=== PATIENT | female | born 1970 | race American Indian/Alaskan Native ===

== ENCOUNTER 2021-08-28 16:16 | Emergency (ER) | payer MEDICARE ==
[2021-08-28 17:00] VITALS: BP 89/66
[2021-08-28] MEDS ORDERED: SODIUM CHLORIDE 0.9% 1000 ML 1,000 ML IV ONE (18:28)
[2021-08-28] MEDS ORDERED: IPRATROPIUM/ALBUTEROL SULFATE 3 ML AMPUL.NEB IH ONE (18:28)
--- NOTE | 2021-08-28 18:29 | Emergency Department Report ---
ED General Adult HPI - General Chief complaint: Dyspnea/Respdistress Stated complaint: COUGHING UP BLOOD Time Seen by Provider: 08/28/21 18:27 Source: patient Mode of arrival: Ambulatory Limitations: No Limitations - History of Present Illness Initial comments: 51-year-old female with a past medical history of vasculitis, lupus which is currently in remission, pseudotumor cerebri presents to the ER today with complaints of cough, vomiting, diarrhea. Patient states that symptoms started 4 days ago. She complains of a harsh cough, and yesterday she noticed that it was streaks of bright red blood mixed with sputum. She started with vomiting and di arrhea yesterday. She reports 2 episodes of vomiting today and 4 episodes of vomiting yesterday. She reports 2 episodes of diarrhea yesterday and 2 episodes of diarrhea today. She also reports lower back pain, headache for 4 days, dysuria, rhinorrhea, nasal congestion and sore throat. She reports pain in the chest from the coughing. She denies any fever or chills. She reports no shortness of breath or wheezing. She states that her daughter and her son are also sick at home with similar symptoms. She states that she has been taking Mucinex and Robitussin without much relief of her symptoms. She is up-to-date on her Covid vaccine but has not taken the test since she has been sick. She denies tobacco use or alcohol abuse or illicit drug use. She states that she has had similar symptoms of bronchitis, and sometimes when she has had blood in her sputum is usually related to pneumonia and so she came to the ER to get checked. MD Complaint: Cough/hemoptysis/vomiting/diarrhea -: days(s) (4) - Related Data Previous Rx's Medication Instructions Recorded Last Taken Type Albuterol Mdi (or & Nicu Only) 2 puff IH QID PRN #8.5 gram 08/28/21 Unknown Rx [ProAir HFA Inhaler] Ondansetron [Zofran Odt] 4 mg PO Q8HR #15 tab.rapdis 08/28/21 Unknown Rx Promethazine /Codeine 5 - 10 ml PO Q6H PRN #120 ml 08/28/21 Unknown Rx [Phenergan/Codeine 6.25-10 mg/5 ml] predniSONE [Deltasone] 40 mg PO QDAY #10 tab 08/28/21 Unknown Rx Allergies Allergy/AdvReac Type Severity Reaction Status Date / Time metoclopramide [From Reglan] Allergy Rash Verified 08/28/21 16:57 Penicillins Allergy Rash Verified 08/28/21 16:57 Sulfa (Sulfonamide Allergy Rash Verified 08/28/21 16:57 Antibiotics) ativan Allergy Unknown Uncoded 08/28/21 16:59 zofran Allergy Hives Uncoded 08/28/21 16:57 ED Review of Systems ROS: Stated complaint: COUGHING UP BLOOD Other details as noted in HPI Comment: All other systems reviewed and negative Constitutional: denies: chills, fever Eyes: denies: eye pain, eye discharge, vision change ENT: congestion, other (rhinorrhea). denies: ear pain, throat pain Respiratory: cough. denies: shortness of breath, SOB with exertion, SOB at rest, wheezing Cardiovascular: chest pain (with cough) Gastrointestinal: nausea, vomiting. denies: abdominal pain, diarrhea, constipation, hematemesis, melena, hematochezia Genitourinary: denies: urgency, dysuria, frequency, hematuria, discharge, abnormal menses, dyspareunia Skin: denies: rash, lesions, change in color, change in hair/nails, pruritus Neurological: denies: headache, weakness, numbness, paresthesias, confusion, abnormal gait, vertigo Psychiatric: denies: anxiety, depression, auditory hallucinations, visual hallucinations, homicidal thoughts, suicidal thoughts Hematological/Lymphatic: denies: easy bleeding, easy bruising, swollen glands ED Past Medical Hx - Medications Home Medications: Home Medications Medication Instructions Recorded Confirmed Last Taken Type Albuterol Mdi (or & Nicu Only) 2 puff IH QID PRN #8.5 gram 08/28/21 Unknown Rx [ProAir HFA Inhaler] Ondansetron [Zofran Odt] 4 mg PO Q8HR #15 tab.rapdis 08/28/21 Unknown Rx Promethazine /Codeine 5 - 10 ml PO Q6H PRN #120 ml 08/28/21 Unknown Rx [Phenergan/Codeine 6.25-10 mg/5 ml] predniSONE [Deltasone] 40 mg PO QDAY #10 tab 08/28/21 Unknown Rx ED Physical Exam - General Limitations: No Limitations General appearance: alert, in no apparent distress, obese, other (pt with harsh dry cough) - Head Head exam: Present: atraumatic, normocephalic, normal inspection - Eye Eye exam: Present: normal appearance, PERRL, EOMI Pupils: Present: normal accommodation - Neck Neck exam: Present: normal inspection, full ROM. Absent: meningismus - Respiratory Respiratory exam: Present: normal lung sounds bilaterally. Absent: respiratory distress, wheezes, rales, rhonchi, stridor - Cardiovascular Cardiovascular Exam: Present: regular rate, normal rhythm, normal heart sounds - GI/Abdominal GI/Abdominal exam: Present: soft. Absent: distended, tenderness, guarding, rebound - Extremities Exam Extremities exam: Present: normal inspection, full ROM. Absent: pedal edema, calf tenderness - Back Exam Back exam: Present: normal inspection, full ROM - Neurological Exam Neurological exam: Present: alert, oriented X3, CN II-XII intact, normal gait - Psychiatric Psychiatric exam: Present: normal affect, normal mood - Skin Skin exam: Present: intact ED Course Vital Signs 08/28/21 16:58 Temperature 98.5 F Pulse Rate 77 Respiratory 18 Rate Blood Pressure 89/66 O2 Sat by Pulse 100 Oximetry ED Medical Decision Making - Lab Data Result diagrams: 08/28/21 18:32 08/28/21 18:32 - Radiology Data Radiology results: report reviewed Patient: VONDA ZARATE MR#: [id number] 2 : 1970 Acct:[id number] Age/Sex: 51 / F ADM Date: 08/28/21 Loc: ED Attending Dr: Ordering Physician: EMILIA QIU Date of Service: 08/28/21 Procedure(s): XR chest routine 2V Accession Number(s): [id number] cc: EMILIA QIU Fluoro Time In Minutes: CHEST PA AND LATERAL VIEWS INDICATION: Cough/hemoptysis. COMPARISON: None. FINDINGS: Support devices: Right-sided port tip projects over the SVC. COLLATERAL CLERK shunt catheter is noted coursing over the right chest. Heart: Within normal limits. Lungs/Pleura: No acute pulmonary or pleural findings. IMPRESSION: 1. No acute findings. Signer Name: Ziggy Loera MD Signed: 08/28/2021 6:50 PM Workstation Name: [id number] Transcribed By: SCOTT Dictated By: Ziggy Loera MD Electronically Authenticated By: Ziggy Loera MD Signed Date/Time: 08/28/211849 DD/ 48 TD/TT: - Medical Decision Making 51-year-old female with a past medical history of vasculitis, lupus which is currently in remission, pseudotumor cerebri presents to the ER today with complaints of cough, vomiting, diarrhea. Patient states that symptoms started 4 days ago. She complains of a harsh cough, and yesterday she noticed that it was streaks of bright red blood mixed with sputum. She started with vomiting and diarrhea yesterday. She reports 2 episodes of vomiting today and 4 episodes of vomiting yesterday. She reports 2 episodes of diarrhea yesterday and 2 episodes of diarrhea today. She also reports lower back pain, headache for 4 days, dysuria, rhinorrhea, nasal congestion and sore throat. She reports pain in the chest from the coughing. She denies any fever or chills. She reports no shortness of breath or wheezing. She states that her daughter and her son are also sick at home with similar symptoms. She states that she has been taking Mucinex and Robitussin without much relief of her symptoms. She is up-to-date on her Covid vaccine but has not taken the test since she has been sick. She denies tobacco use or alcohol abuse or illicit drug use. She states that she has had similar symptoms of bronchitis, and sometimes when she has had blood in her sputum is usually related to pneumonia and so she came to the ER to get checked. CXR shows nothing acute. Labs reviewed and showed mild hypomagnesia at 1.5, K was normal and Creatnine was very mildly elevated at 1.3. Her urine was normal. Patient did recieve IV fluids and dose magnesium during stay. Her cough improved after neb tx and cough medications. Patient currently resting comfortably in recliner. She is not toxic or ill appearing. She is not in any pain or respiratory distress. Her gait is normal and she is neurologically intact. She is not tachycardic or hypoxic. She is afebrile. She is not septic. Suspect her hemoptysis is secondary to her harsh cough/bronchitis. At this time I do not suspect sepsis, unstable angina, pulmonary embolus, aortic dissection or any other emergent conditions needing additional testing or admission. Discussed results, suspected diagnosis and treatment plan with patient. She expressed understanding for instructions and agree with plan. Patient was stable at time of discharge. Critical care attestation.: If time is entered above; I have spent that time in minutes in the direct care of this critically ill patient, excluding procedure time. ED Disposition Clinical Impression: Acute bronchitis, Viral illness, Vomiting and diarrhea Disposition: 01 HOME / SELF CARE / HOMELESS Is pt being admited?: No Does the pt Need Aspirin: No Condition: Stable Instructions: Nausea and Vomiting, Adult, [id number], Acute Bronchitis, Adult, [id number], Viral Illness, Adult, Diarrhea, Adult, [id number], Acute Bronchitis (ED) Additional Instructions: Take the medications as prescribed. If your diarrhea continues , you can take i mmodium from over the counter. Drink lots of fluids. You should consider getting an outpatient COVID 19 test at local urgent care or pharmacy as this could be a cause of your symptoms. Follow-up with PCP and return to ED if worse. Prescriptions: predniSONE [Deltasone] 40 mg PO QDAY #10 tab Promethazine /Codeine [Phenergan/Codeine 6.25-10 mg/5 ml] 5 - 10 ml PO Q6H PRN #120 ml PRN Reason: cough Albuterol Mdi (or & Nicu Only) [ProAir HFA Inhaler] 2 puff IH QID PRN #8.5 gram PRN Reason: Shortness Of Breath Ondansetron [Zofran Odt] 4 mg PO Q8HR #15 tabkenton Referrals: PRIMARY CARE,MD [Primary Care Provider] - 3-5 Days Time of Disposition: 21:37
--- NOTE | 2021-08-28 18:55 | XRay Report ---
CHEST PA AND LATERAL VIEWS INDICATION: Cough/hemoptysis. COMPARISON: None. FINDINGS: Support devices: Right-sided port tip projects over the SVC. 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 Heart: Within normal limits. Lungs/Pleura: No acute pulmonary or pleural findings. IMPRESSION: 1. No acute findings. Signer Name: Ziggy Loera MD Signed: 08/28/2021 6:50 PM Workstation Name: [id number]
[2021-08-28] MEDS ORDERED: PROMETHAZINE/CODEINE 6.25-10 MG ORAL LIQD 5 ML PO ONE (19:00)
[2021-08-28 19:08] LABS: Basophils # (Auto) 0.1 K/mm3 (0.0-0.1); Basophils % (Auto) 0.9 % (0.0-1.8); Eosinophils # (Auto) 0.3 K/mm3 (0.0-0.4); Eosinophils % (Auto) 4.6 % (0.0-4.3); Hematocrit 32.3 % (30.3-42.9); Hemoglobin 10.6 gm/dl (10.1-14.3); Lymphocytes # (Auto) 1.7 K/mm3 (1.2-5.4); Lymphocytes % (Auto) 30.8 % (13.4-35.0); Mean Corpuscular HGB Conc 33 % (30-34); Mean Corpuscular Volume 86 fl (79-97); Monocytes # (Auto) 0.5 K/mm3 (0.0-0.8); Platelet Count 246 K/mm3 (140-440); Red Blood Count 3.73 M/mm3 (3.65-5.03); Red Cell Distribution Width 15.6 % (13.2-15.2)
[2021-08-28 19:44] LABS: Albumin 4.3 g/dL (3.9-5)
[2021-08-28] MEDS ORDERED: MAGNESIUM OXIDE 400 MG TAB PO STA (19:55)
[2021-08-28 20:37] LABS: Bilirubin,Urine NEG (Negative); Blood,Urine NEG (Negative); Color,Urine Yellow (Yellow); Protein,Urine <15 mg/dL mg/dL (Negative); Urobilinogen,Urine < 2.0 mg/dL (<2.0); WBC,Urine < 1.0 /HPF (0.0-6.0)
== END 2021-08-28 22:45 | disposition home or self-care (01) ==
LOC: ED 16:16
DX: B34.9 Viral infection, unspecified (principal); J20.9 Acute bronchitis, unspecified; R11.10 Vomiting, unspecified; R19.7 Diarrhea, unspecified; Z88.6 Allergy status to analgesic agent; Z88.1 Allergy status to other antibiotic agents; Z88.0 Allergy status to penicillin; Z91.09 Other allergy status, other than to drugs and biological substances
CPT/HCPCS: 36415; 71046; 80053; 81001; 83735; 85025; 94640; 96360; 99284; J7030; Q0162